=== PATIENT | female | born 1995 | race Caucasian/White ===

== ENCOUNTER 2018-10-12 17:08 | Emergency (ER) | payer OTHER ==
[2018-10-12 17:54] LABS: URINE BLOOD (Dip) POC Trace-intact (NEGATIVE); URINE GLUCOSE (Dip) POC Negative (NEGATIVE); URINE KETONES (Dip) POC 2+ (NEGATIVE); URINE LEUKOCYTE EST (Dip) POC 1+ (NEGATIVE); URINE NITRITE (Dip) POC Negative (NEGATIVE); URINE TOTAL PROTEIN POC 2+ (NEGATIVE)
[2018-10-12] MEDS: SOD CHLORIDE 0.9% 1,000 ML IV (18:10)
[2018-10-12] MEDS: ONDANSETRON 4 MG INJ IV (18:10)
[2018-10-12 19:10] LABS: ADD MAN DIFF? NO
[2018-10-12 19:12] LABS: WHITE BLOOD COUNT 9.1 10^3/ul (4.8-10.8)
[2018-10-12 19:12] LABS: BASOPHILS % 0.3 % (0.0-2.0); EOSINOPHILS % 0.1 % (0.0-7.0); HEMATOCRIT 36.7 % (37.0-47.0); HEMOGLOBIN 12.1 g/dl (12.0-16.0); LYMPHOCYTES # 1.4 10^3/ul (0.8-2.9); LYMPHOCYTES % 15.5 % (15.0-51.0); MEAN CORPUSCULAR HEMOGLOBIN 24.9 pg (29.0-33.0); MEAN CORPUSCULAR VOLUME 75.7 fl (82.0-101.0); MEAN PLATELET VOLUME 9.8 fl (7.4-10.4); MONOCYTE # 0.6 10^3/ul (0.3-0.9); MONOCYTES % 6.5 % (0.0-11.0); NEUTROPHILS % 77.2 % (39.0-77.0); PLATELET COUNT 357 10^3/UL (140-415); RED BLOOD COUNT 4.85 10^6/ul (4.20-5.40); RED CELL DISTRIBUTION WIDTH 17.7 % (11.5-14.5)
== END 2018-10-12 20:32 | disposition home or self-care (01) ==
LOC: FTE 17:08
DX: O21.0 Mild hyperemesis gravidarum (principal); R10.2 Pelvic and perineal pain; O23.11 Infections of bladder in pregnancy, first trimester; Z3A.12 12 weeks gestation of pregnancy
CPT/HCPCS: 36415; 76801; 81003; 84702; 85025; 86900; 86901; 96374; 99285-25